=== PATIENT | male | born 1970 | race Caucasian/White ===

== ENCOUNTER 2018-09-20 18:39 | Emergency (ER) | payer BC ==
--- NOTE | 2018-09-20 18:54 | EDM.PDOC ---
ED HPI GENERAL MEDICAL PROBLEM - General Chief Complaint: Respiratory Problem Stated Complaint: LUNGS HURT, WHEEZING, FEVER Time Seen by Provider: 09/20/18 18:40 Source of Information: Reports: Patient History Limitations: Reports: No Limitations - History of Present Illness INITIAL COMMENTS - FREE TEXT/NARRATIVE: Patient comes emergency Department today with complaints of fever and cough. The patient since has had a dry hacking nonproductive cough. A high fever at home. Some generalized body aches malaise and fatigue. No joint pain specifically. No nausea no vomiting. No diarrhea. No chest pain. No increased work of breathing. No abdominal pain. No nausea no vomiting no diarrhea. The patient had just returned from [facility] where he was for 10 days. His symptomatology started about 2-3 days after his travels. He denies any rash sores or open lesions. He denies any bug bites. No one else is sick. He has no pain with urination and urinary frequency or flank pain. Onset: Gradual Generalized Pain Score (Numeric/FACES): 4 - Related Data Allergies Allergy/AdvReac Type Severity Reaction Status Date / Time No Known Allergies Allergy Verified 09/20/18 19:03 ED ROS GENERAL - Review of Systems Review Of Systems: ROS reveals no pertinent complaints other than HPI. ED EXAM, GENERAL - Physical Exam Exam: See Below Exam Limited By: No Limitations General Appearance: Alert, WD/WN, No Apparent Distress Eye Exam: Bilateral Eye: EOMI, Normal Inspection Ears: Normal External Exam, Normal Canal, Hearing Grossly Normal, Normal TMs Nose: Normal Inspection, Normal Mucosa, No Blood Throat/Mouth: Normal Inspection, Normal Lips, Normal Teeth, Normal Gums, Normal Oropharynx, Normal Voice, No Airway Compromise Head: Atraumatic, Normocephalic Neck: Normal Inspection, Supple Respiratory/Chest: No Respiratory Distress, Lungs Clear, Normal Breath Sounds, No Accessory Muscle Use, Chest Non-Tender Cardiovascular: Normal Peripheral Pulses, Regular Rate, Rhythm, No Edema Peripheral Pulses: 2+: Posterior Tibial (L), Posterior Tibial (R), Dorsalis Pedis (L), Dorsalis Pedis (R) GI/Abdominal: Normal Bowel Sounds, Soft, Non-Tender (Male) Exam: Deferred Rectal (Males) Exam: Deferred Back Exam: Normal Inspection, Full Range of Motion. No: CVA Tenderness (L), CVA Tenderness (R) Extremities: Normal Inspection, Normal Range of Motion Neurological: Oriented, Normal Cognition, No Motor/Sensory Deficits Psychiatric: Normal Affect, Normal Mood Skin Exam: Warm, Dry, No Rash, Other (Flushed) Course - Vital Signs Last Recorded V/S: Last Vital Signs Temp 36.8 C 09/20/18 18:45 Pulse 72 09/20/18 18:45 Resp 16 09/20/18 18:45 BP 140/68 09/20/18 18:45 Pulse Ox 100 09/20/18 18:45 - Orders/Labs/Meds Orders: Active Orders 24 hr Category Date Time Status RT Aerosol Therapy [RC] ASDIRECTED Care 09/20/18 18:56 Active RT Post Treatment Assessment [RC] Click to Edit Care 09/20/18 19:57 Active RT Pre-Treatment Assessment [RC] Click to Edit Care 09/20/18 19:57 Active CULTURE STREP A CONFIRMATION [] Stat Lab 09/20/18 19:46 Results STREP SCRN A RAPID W CULT CONF [] Stat Lab 09/20/18 19:46 Results Labs: Laboratory Tests 09/20/18 09/20/18 09/20/18 Range/Units 19:10 19:10 19:10 WBC 4.7 L (5.0-10.0) 10^3/uL RBC 4.86 (4.6-6.2) 10^6/uL Hgb 14.9 (14.0-18.0) g/dL Hct 44.9 (40.0-54.0) % MCV 92.4 (80-100) fL MCH 30.7 (27.0-34.0) pg MCHC 33.2 (33.0-35.0) g/dL Plt Count 129 L (150-450) 10^3/uL Neut % (Auto) 76.0 H (42.2-75.2) % Lymph % (Auto) 12.2 L (20.5-50.1) % [place] % (Auto) 9.7 H (2-8) % Eos % (Auto) 1.7 (1.0-3.0) % Baso % (Auto) 0.4 (0.0-1.0) % Sodium 137 (135-145) mmol/L Potassium 4.2 (3.6-5.0) mmol/L Chloride 103 (101-111) mmol/L Carbon Dioxide 24.0 (21.0-31.0) mmol/L Anion Gap 14.2 BUN 22 H (7-18) mg/dL Creatinine 0.9 (0.6-1.3) mg/dL Est Cr Clr Drug Dosing 93.85 mL/min Estimated GFR (MDRD) > 60 BUN/Creatinine Ratio 24.44 Glucose 79 (74-105) mg/dL Calcium 8.7 (8.4-10.2) mg/dl Total Bilirubin 0.6 (0.2-1.0) mg/dL AST 27 (10-42) IU/L ALT 36 (10-60) IU/L Alkaline Phosphatase 75 (42-121) IU/L C-Reactive Protein 2.7 H (0.0-1.3) mg/dL Total Protein 6.8 (6.7-8.2) g/dl Albumin 3.7 (3.2-5.5) g/dl Globulin 3.1 Albumin/Globulin Ratio 1.19 Meds: Medications Discontinued Medications Generic Name Dose Route Start Last Admin Trade Name Freq PRN Reason Stop Dose Admin Albuterol 2.5 mg 09/20/18 18:56 09/20/18 19:04 Proventil Neb Soln NEB 09/20/18 18:57 2.5 mg ONETIME ONE Administration Albuterol 6.7 gm 09/20/18 19:57 09/20/18 20:11 Proventil Hfa INH 09/20/18 19:58 1 puff ONETIME ONE Administration Doxycycline Hyclate 100 mg 09/20/18 20:03 09/20/18 20:11 Vibramycin PO 09/20/18 20:04 100 mg ONETIME ONE Administration - Radiology Interpretation Free Text/Narrative:: Chest x-ray per radiology mild atelectatic or early infiltrate at changes noted within both lung bases. - Re-Assessments/Exams Free Text/Narrative Re-Assessment/Exam: 09/20/18 20:19 Albuterol nebulizer with resolution of his cough. Plans a strep screen negative. I did review the CBC concerns for travel advisories of people to [facility]. There are concerns for Zika typhoid in dengue fever. Elbows majority of these have ocular symptoms as well as severe rash and many other symptomology. I feel that with the diagnosis of pneumonia by his chest x-ray we will treat him for this appropriately. We will send him home with some albuterol as well as Tessalon Perles and doxycycline. If he is not improving he should recheck in the next week and consider the travel advisory viruses as well. Although I think this is unlikely with the finding of pneumonia in his lungs. Patient was comfortable with this plan and his questions were answered. Departure - Departure Time of Disposition: 19:57 Disposition: Home, Self-Care 01 Clinical Impression: Pneumonia Qualifiers: Pneumonia type: due to unspecified organism Laterality: bilateral Lung location : unspecified part of lung Qualified Code(s): J18.9 - Pneumonia, unspecified organism - Discharge Information Instructions: Community-Acquired Pneumonia, Adult, [id number] Referrals: PCP,Not In Area [Primary Care Provider] - Forms: ED Department Discharge Additional Instructions: Tylenol and/or ibuprofen as needed for pain and fever bodyaches. Increase fluids over the next couple of day Rest as much as possible. Albuterol inhaler 2 puffs every 4-6 hours as needed for cough wheezing. Inhaler sent home from the ER. Doxycycline 100 mg, 1 tablet by mouth twice a day for 7 days. Prescription given to the patient. Tessalon Perles 100 mg tablet, 1 tablet by mouth 3 times a day when necessary cough. Prescription given to the patient. Return to the emergency department if new or worsening symptoms. Recheck with primary care provider in the next 4?6 days if not improving sooner first - My Orders Last 24 Hours: My Active Orders 09/20/18 18:56 RT Aerosol Therapy [RC] ASDIRECTED 09/20/18 19:46 CULTURE STREP A CONFIRMATION [RM] Stat STREP SCRN A RAPID W CULT CONF [RM] Stat 09/20/18 19:57 RT Post Treatment Assessment [RC] Click to Edit RT Pre-Treatment Assessment [RC] Click to Edit - Assessment/Plan Last 24 Hours: My Active Orders 09/20/18 18:56 RT Aerosol Therapy [RC] ASDIRECTED 09/20/18 19:46 CULTURE STREP A CONFIRMATION [RM] Stat STREP SCRN A RAPID W CULT CONF [RM] Stat 09/20/18 19:57 RT Post Treatment Assessment [RC] Click to Edit RT Pre-Treatment Assessment [RC] Click to Edit Assessment:: Pneumonia Bilateral Recent travel to [facility]. Plan: Tylenol and/or ibuprofen as needed for pain and fever bodyaches. Increase fluids over the next couple of day Rest as much as possible. Albuterol inhaler 2 puffs every 4-6 hours as needed for cough wheezing. Inhaler sent home from the ER. Doxycycline 100 mg, 1 tablet by mouth twice a day for 7 days. Prescription given to the patient. Tessalon Perles 100 mg tablet, 1 tablet by mouth 3 times a day when necessary cough. Prescription given to the patient. Return to the emergency department if new or worsening symptoms. Recheck with primary care provider in the next 4?6 days if not improving sooner first
[2018-09-20] MEDS ORDERED: Albuterol 0.083% 2.5 MG/3 ML Neb Soln NEB ONE (18:56)
[2018-09-20 19:35] LABS: ANION GAP 14.2; CHLORIDE,CL 103 mmol/L (101-111); SODIUM,NA 137 mmol/L (135-145)
[2018-09-20] MEDS ORDERED: Albuterol 6.7 GM Inhaler INH ONE (19:57)
[2018-09-20] MEDS ORDERED: Doxycycline 100 MG Cap PO ONE (20:03)
== END 2018-09-20 20:15 | disposition home or self-care (01) ==
LOC: DL.ED 18:39
DX: J18.9 Pneumonia, unspecified organism (principal)
CPT/HCPCS: 36415; 71046; 80053; 85025; 86140; 87081; 87430; 87804; 99284; A9270-GY; J7613-GY